=== PATIENT | female | born 1970 | race Caucasian/White ===

== ENCOUNTER → 2016-12-19 | Outpatient (CLI) | payer OTHER ==
[~2016-12-19] MED LIST: ADVAIR 500-501 EACH IH; ALDACTONE100 MG PO; AMBIEN DPS10 MG PO; BROVANA15 MCG/2 M IH; CLARITIN DPS10 MG PO; DELTASONE DPS20 MG PO; GLUCOPHAGE-DPS500 MG PO; HUMALOG100 UNIT/1 SQ; HYDROCHLOROTHIA25 MG PO; HYPER-SAL4 M1 IH; LEVAQUIN DPS500 MG PO; LISINOPRIL10 MG PO; MAALOX DPS30 ML PO; METFORMIN HCL500 MG PO; MONTELUKAST SOD10 MG PO; OXY IR DPS5 MG PO; PREDNISONE PO; PRILOSEC DPS20 MG PO; PROAIR HFA8.5 GM IH; QVAR IH; QVAR8.7 GM IH; SINGULAIR10 MG PO; SPIRONOLACTONE100 MG PO; SURFAK240 MG PO; SYNTHROID DPS0.05 MG PO; SYNTHROID50 MCG PO; TYLENOL DPS325 MG PO; XOPENEX CO1.25 MG/0. IH; ZESTRIL DPS5 MG PO; ZITHROMAX250 MG PO
== END | disposition home or self-care (01) ==
LOC: RAD.S 09:14
DX: Z12.31 Encounter for screening mammogram for malignant neoplasm of breast (principal)